=== PATIENT | female | born 1970 | race Caucasian/White ===

== ENCOUNTER 2023-10-02 11:32 | Emergency (ER) | payer BC, MEDICAID ==
[~2023-10-02] VITALS: Ht 170.2 cm; Wt 81.2 kg
[2023-10-02 12:01] VITALS: BP 133/84; PULSE 104; RESP 22; TEMP 98; O2SAT 94
[2023-10-02 12:58] LABS: BASOPHILS # (AUTO) 0.1 K/uL (0.00-0.22); BASOPHILS % (AUTO) 0.5 % (0.0-2.0); EOSINOPHILS # (AUTO) 0.3 K/uL (0-0.4); EOSINOPHILS % (AUTO) 2.4 % (0.0-4.0); HEMATOCRIT 33.4 % (36-48); HEMOGLOBIN 11.2 g/dL (12.0-16.0); LYMPHOCYTES # (AUTO) 1.4 K/uL (2.5-16.5); LYMPHOCYTES % (AUTO) 11.8 % (20.5-51.1); MEAN CORPUSCULAR HEMOGLOBIN 32 pg (27-31); MEAN CORPUSCULAR HGB CONC 34 g/dL (33-37); MEAN CORPUSCULAR VOLUME 94.5 fL (80-94); MONOCYTES # (AUTO) 0.5 K/uL (0.8-1.0); MONOCYTES % (AUTO) 4.2 % (1.7-9.3); NEUTROPHILS # (AUTO) 9.9 K/uL (1.8-7.7); NEUTROPHILS % (AUTO) 81.1 % (42.2-75.2); PLATELET COUNT (AUTO) 355 K/uL (140-450); RED BLOOD CELL COUNT(AUTO) 3.54 MIL/uL (4.20-5.40); RED CELL DISTRIBUTION WIDTH 14.6 % (11.6-13.7); WHITE BLOOD COUNT (AUTO) 12.2 K/uL (4.8-10.8)
[2023-10-02 13:21] LABS: ALANINE AMINOTRANSFERASE 47 U/L (12-78); ALBUMIN 4.1 g/dL (3.4-5.0); ALKALINE PHOSPHATASE 78 U/L (50-136); ANION GAP 16.7 (8-16); ASPARTATE AMINOTRANSFERASE 36 U/L (15-37); BILIRUBIN,DIRECT 0.1 mg/dL (0.0-0.3); CALCIUM 9.5 mg/dL (8.5-10.1); CARBON DIOXIDE 23.1 mmol/L (21-32); CREATININE 1.6 mg/dL (0.6-1.3); LIPASE 53 U/L (16-77); TOTAL BILIRUBIN 0.5 mg/dL (0.0-1.0); TOTAL PROTEIN, SERUM 7.3 g/dL (6.4-8.2)
[2023-10-02] MEDS: PROCHLORPERAZINE 10 MG/2 ML VIAL IVP ONE (13:22)
[2023-10-02 13:23] LABS: POTASSIUM 2.8 mmol/L (3.5-5.1)
[2023-10-02 14:31] LABS: FREE T4 (FREE THYROXINE) 0.92 ng/dL (0.76-1.46); MAGNESIUM 2.5 mg/dL (1.8-2.4); THYROID STIMULATING HORMONE 0.25 uIU/mL (0.34-3.74)
[2023-10-02] MEDS: NACL 0.9% 1,000 ML IV ONE (14:44)
[2023-10-02] MEDS: POTASSIUM CHLORIDE 10 MEQ TABER PO ONE (14:44)
[2023-10-02 16:32] VITALS: BP 151/74; PULSE 72; RESP 18; TEMP 97.3; O2SAT 96
== END 2023-10-02 16:36 | disposition home or self-care (01) ==
LOC: MED 11:32
DX: G43.109 Migraine with aura, not intractable, without status migrainosus (principal); D53.9 Nutritional anemia, unspecified; E87.6 Hypokalemia; N17.9 Acute kidney failure, unspecified; I10 Essential (primary) hypertension; Z88.0 Allergy status to penicillin
CPT/HCPCS: 36415; 70450; 80048; 80076; 83690; 83735; 84439; 84443; 84484; 85025; 93005; 96361; 96374; 99285; J0780; J7030